=== PATIENT | male | born 1965 | race Caucasian/White ===

== ENCOUNTER 2024-08-05 21:36 | Emergency (ER) | payer MEDICAID ==
[~2024-08-05] VITALS: Ht 175.3 cm; Wt 68.0 kg
[~2024-08-05 21:36] MED LIST: OMEP40CA20 MT
[2024-08-05 21:38] VITALS: O2SAT 99
[2024-08-05 23:32] LABS: CHLORIDE 103 mEq/L (98-107); POTASSIUM 3.8 mEq/L (3.5-5.1); SODIUM 142 mEq/L (136-145)
[2024-08-05 23:33] LABS: CALCIUM 9.5 mg/dL (8.7-10.4); CARBON DIOXIDE 28 mEq/L (21-32)
[2024-08-05 23:38] LABS: GLUCOSE 130 mg/dL (70-105); UREA NITROGEN BLOOD 10 mg/dL (9-23)
[2024-08-05 23:39] LABS: BASOPHILS % 0.6 % (0.0-2.0); EOSINOPHILS % 0.4 % (0.0-5.0); HEMATOCRIT. 51.4 % (42.0-52.0); HEMOGLOBIN. 17.6 g/dL (14.0-18.0); LYMPHOCYTES % 9.1 % (20.0-50.0); MEAN CORPUSCULAR HEMOGLOBIN 31.3 pg (28.0-32.0); MEAN CORPUSCULAR HGB CONC 34.2 g/dL (31.0-37.0); MEAN CORPUSCULAR VOLUME 91.5 fL (80.0-94.0); MEAN PLATELET VOLUME 8.4 fl (7.4-10.4); MONOCYTES % 5.1 % (2.0-8.0); NEUTROPHILS % 84.8 % (40.0-76.0); PLATELET 294 x1000/uL (130-400); RED BLOOD CELL COUNT 5.62 mill/uL (4.7-6.1); RED CELL DISTRIBUTION WIDTH 13.5 % (11.6-14.6); WHITE BLOOD COUNT 10.3 x1000/uL (4.5-11.0)
[2024-08-05 23:40] LABS: ALANINE AMINOTRANSFERASE 13 IU/L (10-49); ALBUMIN 4.6 g/dL (3.2-4.8); ASPARTATE AMINOTRANSFERASE 13 IU/L (<34); BILIRUBIN TOTAL 0.9 mg/dL (0.1-1.0); PROTEIN TOTAL 7.5 g/dL (6.0-8.3)
[2024-08-05 23:57] LABS: TROPONIN I HIGH SENSITIVITY < 4 ng/L (3.0-53)
[2024-08-06] MEDS: VISCOUS LIDOCAINE 2% 15 ML UDC MM STA (00:12)
[2024-08-06] MEDS: ONDANSETRON 4MG ODT PO ONE (00:12)
[2024-08-06] MEDS: FAMOTIDINE 20MG TABLET PO ONE (00:13)
[2024-08-06] MEDS: MAGNESIUM/ALUMINUM HYDROXIDE/SIMETHICONE 30ML UDC PO ONE (00:13)
[2024-08-06 01:34] VITALS: BP 124/71; PULSE 90; RESP 18; TEMP 36.7; O2SAT 99
[2024-08-06] MEDS ORDERED: OMEP20CA14 MT (01:43)
[2024-08-06] MEDS ORDERED: MAG355OR21 MT (01:43)
== END 2024-08-06 01:35 | disposition home or self-care (01) ==
LOC: ER 21:36
DX: R10.13 Epigastric pain (principal); R11.2 Nausea with vomiting, unspecified; Z79.899 Other long term (current) drug therapy; Z87.11 Personal history of peptic ulcer disease
CPT/HCPCS: 99284; 76705; 80053; 83690; 85025; 84484; 36415; 93005; Q0162